=== PATIENT | male | born 1930 | race Caucasian/White ===

== ENCOUNTER 2018-12-09 05:43 | Inpatient (IN) | payer MEDICARE ==
[2018-11-29 11:09] LABS: HEMATOCRIT 43.5 % (42.0-52.0); HEMOGLOBIN 14.6 gm/dL (14.0-18.0); MCH 32.2 pg (26.0-34.0); MCHC 33.5 g/dL (28.0-37.0); RBC 4.53 mil/uL (4.50-6.00); RDW 12.6 % (10.5-14.5); WBC 8.8 thou/uL (4.0-11.0)
[2018-11-29 11:23] LABS: URINE BILIRUBIN NEGATIVE (Negative); URINE BLOOD NEGATIVE (Negative); URINE CLARITY CLEAR; URINE COLOR YELLOW; URINE GLUCOSE-RANDOM* NEGATIVE (Negative); URINE KETONES NEGATIVE (Negative); URINE LEUKOCYTES-REFLEX NEGATIVE (Negative); URINE NITRITE-REFLEX NEGATIVE (Negative); URINE PROTEIN (DIPSTICK) NEGATIVE (Negative); URINE SPECIFIC GRAVITY 1.025 (1.005-1.035); URINE UROBILINOGEN 0.2 E.U./dl (0.2-1.0)
[2018-11-29 11:26] LABS: ALBUMIN 3.1 g/dL (3.4-5.0); CALCIUM 9.3 mg/dL (8.5-10.1); CREATININE 1.3 mg/dL (0.7-1.3); POTASSIUM 4.5 mmol/L (3.5-5.1); TOTAL BILIRUBIN 0.5 mg/dL (<0.1-1.0); TOTAL PROTEIN 6.8 g/dL (6.4-8.2)
[2018-11-29 11:28] LABS: APTT 26.6 Seconds (24.5-32.8); PROTIME 10.7 Seconds (9.3-11.4)
--- NOTE | 2018-11-29 14:14 | EKG ---
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
[~2018-12-09] VITALS: Ht 175.3 cm; Wt 73.5 kg
[2018-12-09] VITALS (13 sets, daily range): BP systolic 101–130; BP diastolic 50–68
[~2018-12-09 05:43] MED LIST: ALEVE220 MG PO; ASPIR 8181 MG PO; CEFUROXIME500 MG PO; COMBIGAN EYE DR10 ML OPHTHALMIC; FLOMAX0.4 MG PO; LISINOPRIL-HCT1 EACH PO; MEDROLDOSEPACK PO; OMEPRAZOLE40 MG PO; ROSUVASTATIN CA10 MG PO
--- NOTE | 2018-12-09 11:45 | NUR ---
Pt recieved from the PACU by bed acc by rn and Tech. Pt is awake and orient. Pt oriented to room and surroundings. Placed on the monitor shows NSR. Rt radial [place], waveform adequate. talley intact with some old blood at insertion site. scd on. Rt Carotid site with Crystal dressing intact with some adjustments the light is green. HOB elevated to 30 degree. here on arrival. Cardene drip on at @ 5 mcg for a short time. Family at the bedside visiting hours explained. will cont to monitor.
--- NOTE | 2018-12-09 19:45 | NUR ---
EKG DONE AT BEDSIDE. NORMAL SINUS RHTHYM. DR. MARTINEZ AT BEDSIDE. GAVE AN ORDER FOR SODIUM CITRATE FOR HEART BURN. MENTIONED DR. MARTINEZ FOR THE BLOOD TINGED URINE. DR. MARTNIEZ IS AWARE ABOUT IT. WILL CONTINUE TO MONITOR.
[2018-12-10] VITALS (16 sets, daily range): BP systolic 98–156; BP diastolic 47–85
[2018-12-10 05:31] LABS: HEMATOCRIT 37.6 % (42.0-52.0); HEMOGLOBIN 12.5 gm/dL (14.0-18.0); MCH 31.9 pg (26.0-34.0); MCHC 33.2 g/dL (28.0-37.0); MCV 96.2 fL (80.0-100.0); RBC 3.9 mil/uL (4.50-6.00); RDW 13.1 % (10.5-14.5)
[2018-12-10 05:34] LABS: CALCIUM 8.3 mg/dL (8.5-10.1); CREATININE 0.9 mg/dL (0.7-1.3); POTASSIUM 4.1 mmol/L (3.5-5.1)
--- NOTE | 2018-12-10 10:19 | EKG ---
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
--- NOTE | 2018-12-10 13:41 | NUR ---
PATIENT ALERT AND ORIENTED X4, NO COMPLAINTS OF PAIN. ON ROOM AIR. UP INDEPENDENTLY. PATIENT GIVEN DISCHARGE INSTRUCTIONS, IV'S REMOVED, RODRÍGUEZ DRESSING TO RIGHT CAROTID INTACT. CHANGED BY DR. MARTINEZ, PATIENT INSTRUCTED ON CARE. NO NEW MEDICATIONS ORDERED. ACTIVITY DISCUSSED. FOLLOW UP APPOINTMENTS DISCUSSED WITH PATIENT AND SON. NO SIGNS OF ACUTE DISTRESS NOTED AT THIS TIME. PATIENT TRANSFERRED TO RIDE HOME BY NURSING STAFF.
--- NOTE | 2018-12-12 17:07 | PATH ---
[facility] [address] [place] [address] PATHOLOGY RPT PROCEDURE Name: FITZ STEWART Room #: 236-P DIS IN M.R.#: [id number] Admission: 12/09/18 Date of : 34 Discharge: 12/10/18 Report #: [id number] Path Case #: [id number] [facility] Accession Number: [id number] . 01 Material submitted: . artery - RIGHT CAROTID ARTERY PLAQUE. Modifiers: right . 01 Clinical history: . Disorder of arteries and arterioles . 02 Diagnosis: Right carotid artery plaque, carotid endarterectomy: - Calcific atherosclerosis. - Vessel wall showing extensive myxoid degeneration. (IUV:sundeep; 12/12/2018) QMS 12/12/2018 1314 Local . 02 Electronically signed: . Cece Almeida MD, Pathologist NPI- [id number] . 01 Gross description: . The specimen is received in formalin, labeled "Fitz Stewart, right carotid artery plaque" and consists of an elongate segment of rubbery to calcified yellow orange tissue measuring 3.1 x 1.1 x 0.6 cm. The lumen is dilated and becomes markedly stenotic at the site of the calcification. Cannery Worker sections are submitted in A1 following decalcification. (SDY; 12/09/2018) SYU/SYU 12/09/2018 1707 Local . 02 Pathologist provided ICD-10: I65.21 . 02 CPT . 049099, 045869 Specimen Comment: A courtesy copy of this report has been sent to Specimen Comment: [phone], . Specimen Comment: Report sent to / DR BORJAS Performed at: [address], [place] [id number] MD Anand Stephens MD Phone: [phone] Performed at: [address] [id number] MD Cece Almeida MD Phone: [phone]
--- NOTE | 2018-12-15 07:32 | O ---
[facility] [place] [address] OPERATIVE REPORT Name: AMIRAH LEACH Room #: 236-P [facility] IN M.R.#: [id number] Admission: 12/09/18 Attend Phys: Otoniel Rowe MD Discharge: 12/10/18 Date of : 34 Report #: [id number] THIS REPORT FOR: //name// CC: Otoniel Dickerson DATE OF SERVICE: 12/09/2018 PREOPERATIVE DIAGNOSIS: Right internal carotid artery stenosis. POSTOPERATIVE DIAGNOSIS: Right internal carotid artery stenosis. OPERATION: Right carotid endarterectomy with patch closure. SURGEON: Otoniel Rowe MD ANESTHESIA: General. INDICATIONS: The patient is an 88-year-old with a high-grade right internal carotid stenosis. The patient was seen for Dr. Otoniel Espinoza. Left carotid has trivial disease. FINDINGS AND TECHNIQUE: After general anesthesia was established, an oblique right neck incision was made. Common facial vein was divided. Common internal and external carotid arteries were identified and controlled as was the superior thyroid artery. A 10,000 units of heparin were given. The carotid vessels were occluded. Continuous electroencephalographic monitoring was performed. When the carotid vessels were occluded, no EEG changes were noted. The carotid arteriotomy was made. The endarterectomy was performed without creating a distal flap. Neointima was inspected and all loose debris was removed. Tacking sutures were placed at the transition zone. When the endarterectomy was deemed satisfactory, the arteriotomy was closed with thin walled pericardial patch and running Prolene. Prior to finishing the closure, the carotid vessels were backbled and the artery was flushed with heparinized saline. Flow was established first through the external, then the internal carotid artery. Protamine was given to reverse the heparin. When hemostasis was satisfactory, wound was irrigated with antibiotic solution. Mermentau drain was brought out through the bottom pole of the incision and the wound was closed in layers. The patient was taken to the recovery area in good condition having tolerated the [facility] [address] [place] [address] OPERATIVE REPORT Name: AMIRAH LEACH Delfino Room #: 236-P [facility] IN .R.#: [id number] Admission: 12/09/18 Attend Phys: Otoniel Rowe MD Discharge: 12/10/18 Date of : 34 Report #: [id number] procedure well and there the neurologic progress was monitored. All counts reported as correct. <ELECTRONICALLY SIGNED> By: Otoniel Rowe MD 12/15/18 0732 1409 1429 Otoniel Rowe MD /nt
== END 2018-12-10 13:40 | disposition home or self-care (01) | DRG 39 ==
LOC: TBA 05:43 → PRE 05:43 → ICU 11:40 → PRE 13:36 → ICU 12-10 13:40
PROVIDERS: ADMIT Surgery Vascular Surgery
PROC: 03UK0KZ Supplement Right Internal Carotid Artery with Nonautologous Tissue Substitute, Open Approach (ICD-10-PCS; principal; 2018-12-09)
PROC: 03CK0ZZ Extirpation of Matter from Right Internal Carotid Artery, Open Approach (ICD-10-PCS; principal; 2018-12-09)
DX: I65.21 Occlusion and stenosis of right carotid artery (principal); I10 Essential (primary) hypertension
CPT/HCPCS: 10078; 47375; 50010; 50101; 50386; 50417; 51751; 52279; 54118; 56524; 56526; 56528; 56531; 56534; 57254; 62110; 62900; 65020; 65040; 70005